=== PATIENT | male | born 1965 | race Caucasian/White ===

== ENCOUNTER 2017-12-29 21:46 | Emergency (ER) | payer BC ==
[~2017-12-29] VITALS: Ht 190.5 cm; Wt 133.8 kg
[~2017-12-29 21:46] MED LIST: ATIVAN2 MG/ML PO; BENAZEPRIL HCL10 MG PO; Campral PO; Chloraseptic Spray [BKC] TOPICAL; LOTREL 5/10 MG1 CAP PO; PROTONIX40 MG PO; ZOFRAN ODT4 MG/UDTAB PO
[2017-12-29 21:51] VITALS: Ht 190.5 cm; Wt 133.8 kg
[2017-12-29] MEDS ORDERED: ZYLOPRIM100 MG PO (21:52)
[2017-12-29 23:34] LABS: BASOPHILS 0 % (0-2); EOSINOPHILS 0 % (0-7); HEMATOCRIT 45.6 % (42.0-54.0); HEMOGLOBIN 16.2 g/dL (13.5-17.5); IMMATURE GRANULOCYTES 0.3 % (0-5); MCH 32.9 pg (26.0-34.0); MCHC 35.5 g/dL (31.0-37.0); MCV 92.7 fL (80.0-100.0); MEAN PLATELET VOLUME 10.9 fL (7.4-10.4); MONOCYTES 6.6 % (2-11); NEUTROPHILS 77.1 % (40-80); PLATELET COUNT 187 10x3/uL (130-400); RBC 4.92 10x6/uL (4.20-6.10); RDW 14.2 % (11.5-14.5); WBC 6.7 10x3/uL (4.8-10.8)
[2017-12-29 23:57] LABS: CALC OSMOLALITY 280 mosm/kg (275-300); CALCIUM 8.5 mg/dL (8.5-10.1); CARBON DIOXIDE 25.9 mmol/L (21.0-32.0); CHLORIDE - SERUM 99 mmol/L (98-107); GLUCOSE 156 mg/dL (74-106); POTASSIUM - SERUM 3.8 mmol/L (3.5-5.1); SODIUM 140 mmol/L (136-145); UREA NITROGEN 10 mg/dL (7-18); eGFR NON AFRICAN AMERICAN 84 mL/min (90-120)
[2017-12-30] LABS: THYROID STIMULATING HORMONE 2.34 uIU/mL (0.36-3.74)
[2017-12-30 00:07] LABS: APPEARANCE CLEAR (CLEAR); BILIRUBIN NEGATIVE (NEGATIVE); COLOR DK YELLOW (YELLOW); GLUCOSE NEGATIVE (NEGATIVE); KETONE MODERATE mg/dL (NEGATIVE); NITRITE NEGATIVE (NEGATIVE); PROTEIN NEGATIVE (NEGATIVE); SPECIFIC GRAVITY 1.015 (1.005-1.020); UROBILINOGEN NORMAL (NORMAL)
[2017-12-30 00:23] LABS: UDS - AMPHET NEGATIVE QUAL (NEGATIVE); UDS - BARB NEGATIVE QUAL (NEGATIVE); UDS - BENZO NEGATIVE QUAL (NEGATIVE); UDS - COCAINE NEGATIVE QUAL (NEGATIVE); UDS - OPIATE NEGATIVE QUAL (NEGATIVE); UDS - PCP NEGATIVE QUAL (NEGATIVE); UDS - THC NEGATIVE QUAL (NEGATIVE)
[2017-12-30 03:29] LABS: AMYLASE - SERUM 57 U/L (25-115); LIPASE 133 U/L (73-393)
[2017-12-30] MEDS ORDERED: KLONOPIN1 MG PO (06:54)
[2017-12-30 07:10] VITALS: BP 155/99
== END 2017-12-30 07:56 | disposition other institution (70) ==
LOC: D.ER 21:46
PROVIDERS: Family Medicine
DX: R45.851 Suicidal ideations (principal); F10.129 Alcohol abuse with intoxication, unspecified; F17.200 Nicotine dependence, unspecified, uncomplicated